=== PATIENT | male | born 2005 | race Caucasian/White ===

== ENCOUNTER 2023-03-17 20:22 | Emergency (ER) | payer OTHER ==
[~2023-03-17] VITALS: Ht 177.8 cm; Wt 73.9 kg
[2023-03-17 20:25] VITALS: BP 128/83
== END 2023-03-17 22:30 | disposition home or self-care (01) ==
LOC: ER 20:22
DX: S66.822A Laceration of other specified muscles, fascia and tendons at wrist and hand level, left hand, initial encounter (principal); W26.0XXA Contact with knife, initial encounter; Z88.0 Allergy status to penicillin
CPT/HCPCS: 12001; 99282-25